=== PATIENT | male | born 1970 ===

== ENCOUNTER 2018-03-05 19:30 | Outpatient (CLI) | payer OTHER | END 2018-03-05 19:31 | disposition home or self-care (01) | LOC: SLEEPLAB 19:30 | PROVIDERS: ATTEND Family Medicine | DX: G47.33 Obstructive sleep apnea (adult) (pediatric) (principal); R53.83 Other fatigue; R09.89 Other specified symptoms and signs involving the circulatory and respiratory systems; R51 Headache; G31.84 Mild cognitive impairment of uncertain or unknown etiology; F41.9 Anxiety disorder, unspecified; K21.9 Gastro-esophageal reflux disease without esophagitis; R06.83 Snoring; G47.10 Hypersomnia, unspecified; G47.00 Insomnia, unspecified; G47.31 Primary central sleep apnea; Z68.20 Body mass index [BMI] 20.0-20.9, adult | CPT/HCPCS: 95810 ==

== ENCOUNTER 2018-04-08 19:30 | Outpatient (CLI) | payer OTHER | END 2018-04-08 19:31 | disposition home or self-care (01) | LOC: SLEEPLAB 19:30 | PROVIDERS: ATTEND Family Medicine | DX: G47.33 Obstructive sleep apnea (adult) (pediatric) (principal); R53.83 Other fatigue; G31.84 Mild cognitive impairment of uncertain or unknown etiology; R51 Headache; K21.9 Gastro-esophageal reflux disease without esophagitis; R06.83 Snoring; F41.9 Anxiety disorder, unspecified; G47.31 Primary central sleep apnea | CPT/HCPCS: 95811 ==